=== PATIENT | male | born 1950 | race Caucasian/White ===

== ENCOUNTER 2021-09-10 10:21 | Day surgery (SDC) | payer MEDICARE ==
[~2021-09-10] VITALS: Ht 185.4 cm; Wt 80.4 kg
[2021-09-10 11:34] VITALS: BP 125/63; PULSE 70; TEMP 97.4
[2021-09-10] MEDS ORDERED: ASPIRIN 81M81 MG/TA2 PO (11:39)
[2021-09-10] MEDS ORDERED: ARICEPT10 MG PO (11:40)
[2021-09-10] MEDS ORDERED: NEURONTIN600 MG/TAB PO (11:40)
[2021-09-10] MEDS ORDERED: ANTI-DIARRHEAL2 MG PO (11:41)
[2021-09-10] MEDS ORDERED: ZESTRIL 20MG TA20 MG PO (11:41)
[2021-09-10] MEDS ORDERED: GLUCOPHAGE1000 MG PO (11:42)
[2021-09-10] MEDS ORDERED: ZOLOFT 100MG100 MG PO (11:42)
[2021-09-10] MEDS ORDERED: ZOCOR 40MG40 MG PO (11:43)
[2021-09-10 12:35] VITALS: BP 111/54; PULSE 59; TEMP 97.3
[2021-09-10 12:50] VITALS: BP 111/72; PULSE 64
[2021-09-10 13:05] VITALS: BP 127/61; PULSE 70
--- NOTE | 2021-09-10 13:56 | NUR ---
1235: Patient arrived back into [facility] room 6. Son at bedside. Dr. Hubbard in to see patient. Report received from ARMANDO Jordan. Patient alert and awake. Requesting diet pepsi and a blueberry muffin 1250: Patient tolerating food and drink well. No complaint of pain or nausea. 1305: Went through discharge instructions with patient and son. Questions answered. IV removed without complications. Patient to get dressed. Son left to pull up car. 1320: Patient dressed. Escorted to patient entrance via wheelchair. Patient got into personal vehicle unassisted and left in the care of his son, Benigno.
== END 2021-09-10 13:20 | disposition home or self-care (01) ==
LOC: SDCO 10:21
DX: D12.2 Benign neoplasm of ascending colon (principal); D12.4 Benign neoplasm of descending colon; D17.5 Benign lipomatous neoplasm of intra-abdominal organs; K57.30 Diverticulosis of large intestine without perforation or abscess without bleeding; R19.7 Diarrhea, unspecified; R15.1 Fecal smearing; R63.4 Abnormal weight loss; Z80.9 Family history of malignant neoplasm, unspecified; Z85.820 Personal history of malignant melanoma of skin; Z87.891 Personal history of nicotine dependence
CPT/HCPCS: J2704; J7030

== ENCOUNTER → 2021-09-14 | Outpatient (CLI) | payer MEDICARE ==
[~2021-09-14] MED LIST: ANTI-DIARRHEAL2 MG PO; ARICEPT10 MG PO; ASPIRIN 81M81 MG/TA2 PO; GLUCOPHAGE1000 MG PO; NEURONTIN600 MG/TAB PO; ZESTRIL 20MG TA20 MG PO; ZOCOR 40MG40 MG PO; ZOLOFT 100MG100 MG PO
== END ==
LOC: COL.CARD 09:47
DX: R27.0 Ataxia, unspecified (principal); R25.1 Tremor, unspecified; R29.898 Other symptoms and signs involving the musculoskeletal system; R41.3 Other amnesia; E53.8 Deficiency of other specified B group vitamins

== ENCOUNTER → 2021-10-19 | Outpatient (CLI) | payer MEDICARE | LOC: COL.RAD 11:08 | DX: K57.30 Diverticulosis of large intestine without perforation or abscess without bleeding (principal); D12.6 Benign neoplasm of colon, unspecified | CPT/HCPCS: Q9967 ==

== ENCOUNTER 2021-12-14 08:45 | Outpatient (RCR) | payer MEDICARE | END 2021-12-16 | disposition home or self-care (01) | LOC: MKS.ESL.PT | DX: G90.3 Multi-system degeneration of the autonomic nervous system (principal); R41.3 Other amnesia; E53.8 Deficiency of other specified B group vitamins ==

== ENCOUNTER 2021-12-31 10:30 | Outpatient (RCR) | payer MEDICARE | END 2022-01-16 | disposition home or self-care (01) | LOC: MKS.ESL.PT | DX: G90.3 Multi-system degeneration of the autonomic nervous system (principal); E53.8 Deficiency of other specified B group vitamins ==

== ENCOUNTER 2022-01-26 12:26 | Observation (INO) | payer MEDICARE ==
[~2022-01-26] VITALS: Ht 185.4 cm; Wt 91.8 kg
[2022-01-26 13:18] LABS: ALANINE AMINOTRANSFERASE 30 U/L (0-55); ALBUMIN 3.2 gm/dL (3.4-4.8); ALKALINE PHOSPHATASE 93 U/L (40-150); ANION GAP 12 mmol/L (7-16); AST,SGOT 21 U/L (5-34); BILIRUBIN,TOTAL 0.9 mg/dL (0.2-1.2); BLOOD UREA NITROGEN 21 mg/dL (8-26); CALCIUM 8.5 mg/dL (8.4-10.2); CARBON DIOXIDE 22 mmol/L (23-31); CHLORIDE 107 mmol/L (98-107); CREATININE, serum 0.77 mg/dL (0.72-1.25); GLUCOSE 93 mg/dL (70-99); POTASSIUM 3.7 mmol/L (3.5-4.5); SODIUM 141 mmol/L (136-145); TOTAL PROTEIN 6.3 gm/dL (6.2-8.1)
[2022-01-26 13:24] LABS: TROPONIN-I < 0.010 ng/mL (0.00-0.033)
[2022-01-26 13:26] LABS: BASO % 0.7 % (0.0-2.0); EOS # 0.3 K/mm3 (0.0-0.7); EOS % 4.5 % (0.0-4.0); GRAN # 3.8 K/mm3 (1.4-6.5); GRAN % 65.7 % (42.2-75.2); HEMOGLOBIN 11.1 g/dl (13.5-18.0); LYMPH % 17.6 % (20.0-51.0); MEAN CELL VOLUME 92 fl (80.0-100.0); MEAN CORPUSCULAR HEMOGLOBIN 32 pg (27-31); MEAN CORPUSCULAR HGB CONC 35 g/dl (33.0-37.0); MEAN PLATELET VOLUME 9.9 fl (7.4-10.4); MONO # 0.6 K/mm3 (0.1-0.6); MONO % 10.5 % (1.7-9.3); PLATELET COUNT 147 K/mm3 (130-400); RED BLOOD COUNT 3.49 M/mm3 (4.20-5.60); REDCELL DISTRIBUTION WIDTH-CV 13.4 % (11.5-14.5)
[2022-01-26 13:31] LABS: HEMATOCRIT 32.2 % (42.0-52.0)
[2022-01-26 15:36] LABS: COLLECTION METHOD CLEAN CATCH
[2022-01-26 15:40] LABS: URINE APPEARANCE Clear (CLEAR/HAZY); URINE COLOR Amber (YELLOW); URINE PROTEIN(semi-quant) TRACE (NEGATIVE)
[2022-01-26 15:41] LABS: URINE GLUCOSE TRACE (NEGATIVE)
[2022-01-26 15:42] LABS: URINE BLOOD Negative (NEGATIVE); URINE NITRATE Negative (NEGATIVE); URINE UROBILINOGEN 0.2 E.U/dL (0.2-1.0)
[2022-01-26 15:43] LABS: URINE KETONE TRACE (NEGATIVE)
[2022-01-26 15:44] LABS: MUCOUS Present (NOT PRESENT); SQUAMOUS EPITHELIAL 0-2 /hpf (0-10); URINE BACTERIA None Seen /hpf (NONE SEEN); URINE RBC 0-2 /hpf (0-2)
[2022-01-26 15:51] VITALS: BP 142/58; PULSE 74; TEMP 98.4
[2022-01-26] MEDS ORDERED: NAMENDA 10MG TA10 MG PO (16:12)
--- NOTE | 2022-01-26 18:20 | NUR ---
Pt up to the floor into room 346. Pt reports pain with movement, comfortable at rest. Urinating per urinal. IVF started to LFA. SCD's in place bilaterally. Pt cooperative with cares this far. Refusing dinner at this time. POC discussed with patient.
--- NOTE | 2022-01-26 18:50 | NUR ---
Medications updated through talking with pharmacies.
--- NOTE | 2022-01-26 19:43 | NUR ---
PT A&OX4 RESTING IN BED. ASSESSMENT COMPLETE. NS AT 75 IN LT WRIST. PT RATES PN A 3/10 IN THE LT HIP AND RIBS. VS STABLE AND TELE IN PLACE. FALL PRECAUTIONS IN PLACE. PT REFUSED DINNER. NO NEEDS AT THIS TIME. CALL LIGHT WITHIN REACH.
[2022-01-26 20:11] VITALS: BP 125/52; PULSE 75; TEMP 98.7
[2022-01-26 23:38] VITALS: BP 137/67; PULSE 74; TEMP 97.3
[2022-01-27 03:24] VITALS: BP 134/70; PULSE 69; TEMP 98
--- NOTE | 2022-01-27 05:28 | NUR ---
PT REPORTS HAVING GENERALIZED PAIN AND NORCO WAS GIVEN.
[2022-01-27 06:32] LABS: BASO # 0.1 K/mm3 (0.0-0.2); BASO % 0.9 % (0.0-2.0); EOS # 0.4 K/mm3 (0.0-0.7); GRAN # 3.3 K/mm3 (1.4-6.5); GRAN % 61.2 % (42.2-75.2); HEMOGLOBIN 11.2 g/dl (13.5-18.0); LYMPH % 19.4 % (20.0-51.0); MEAN CELL VOLUME 93 fl (80.0-100.0); MEAN CORPUSCULAR HEMOGLOBIN 31 pg (27-31); MEAN CORPUSCULAR HGB CONC 34 g/dl (33.0-37.0); MEAN PLATELET VOLUME 10.4 fl (7.4-10.4); MONO # 0.6 K/mm3 (0.1-0.6); MONO % 10.9 % (1.7-9.3); PLATELET COUNT 151 K/mm3 (130-400); RED BLOOD COUNT 3.57 M/mm3 (4.20-5.60); REDCELL DISTRIBUTION WIDTH-CV 13.3 % (11.5-14.5)
[2022-01-27 06:49] LABS: HEMATOCRIT 33.2 % (42.0-52.0)
[2022-01-27 06:51] LABS: ALBUMIN 2.8 gm/dL (3.4-4.8); CALCIUM 8.1 mg/dL (8.4-10.2); CREATININE, serum 0.72 mg/dL (0.72-1.25); MAGNESIUM 1.9 mg/dL (1.6-2.6); PHOSPHOROUS 2.8 mg/dL (2.3-4.7)
--- NOTE | 2022-01-27 07:28 | NUR ---
Shift report received from film processing shift supervisor RN
[2022-01-27 07:38] VITALS: BP 142/66; PULSE 65; TEMP 98.1
--- NOTE | 2022-01-27 09:17 | NUR ---
Pt resting supine in bed. SCDs on bilaterally. He denies the need for pain medication at this time. Diet changed to General by hospitalist. Pt. declining breakfast and states he is not feeling hungry. Ice water and apple juice given. Pt. denies additional needs at this time. Call light is in his reach
[2022-01-27 15:25] VITALS: BP 116/58; PULSE 65; TEMP 97.9
--- NOTE | 2022-01-27 15:28 | NUR ---
Pt resting supine in bed. PRN pain medication given for pain at 6\10 left hip/ribs. IS has been encouraged q1hr. Pt. denies shortness of breath or difficulty breathing. Call light is within pt's reach
--- NOTE | 2022-01-27 19:03 | NUR ---
RECEIVED CHANGE OF SHIFT REPORT FROM DAY SHIFT RN.
[2022-01-27 19:13] VITALS: BP 102/83; PULSE 75; TEMP 97.9
[2022-01-27 23:39] VITALS: BP 129/60; PULSE 69; TEMP 98.1
[2022-01-28 04:07] VITALS: BP 125/52; PULSE 64; TEMP 97.9
[2022-01-28 06:25] LABS: BASO % 0.5 % (0.0-2.0); EOS # 0.3 K/mm3 (0.0-0.7); EOS % 6.9 % (0.0-4.0); GRAN # 2.3 K/mm3 (1.4-6.5); GRAN % 59.4 % (42.2-75.2); HEMOGLOBIN 10.9 g/dl (13.5-18.0); LYMPH # 0.8 K/mm3 (1.2-3.4); LYMPH % 19.9 % (20.0-51.0); MEAN CELL VOLUME 95 fl (80.0-100.0); MEAN CORPUSCULAR HEMOGLOBIN 33 pg (27-31); MEAN CORPUSCULAR HGB CONC 35 g/dl (33.0-37.0); MEAN PLATELET VOLUME 9.5 fl (7.4-10.4); MONO # 0.5 K/mm3 (0.1-0.6); MONO % 12.8 % (1.7-9.3); PLATELET COUNT 150 K/mm3 (130-400); RED BLOOD COUNT 3.34 M/mm3 (4.20-5.60); REDCELL DISTRIBUTION WIDTH-CV 13.2 % (11.5-14.5)
[2022-01-28 06:35] LABS: HEMATOCRIT 31.6 % (42.0-52.0)
[2022-01-28 06:54] LABS: ALBUMIN 2.5 gm/dL (3.4-4.8); CALCIUM 8.3 mg/dL (8.4-10.2); CREATININE, serum 0.75 mg/dL (0.72-1.25); MAGNESIUM 1.9 mg/dL (1.6-2.6); PHOSPHOROUS 3.8 mg/dL (2.3-4.7); POTASSIUM 3.8 mmol/L (3.5-4.5)
--- NOTE | 2022-01-28 07:17 | NUR ---
CHANGE OF SHIFT REPORT GIVEN TO DAY SHIFT RNPANCHITO.
[2022-01-28 07:27] VITALS: BP 144/54; PULSE 59; TEMP 98.3
--- NOTE | 2022-01-28 07:55 | NUR ---
Received shift report from the night nurse.
--- NOTE | 2022-01-28 09:21 | NUR ---
Referral made to IPR director.
--- NOTE | 2022-01-28 10:18 | NUR ---
Patient laying in bed and alert and oriented. IVF infusing at 75ml/hr with no difficulty. SCD in place and patient reports of pain at left lower leg. Patient rated pain level 8/10 and describes pain as stabbing. Patient refused to have SCD pump on lower extremities. Will continue to monitor patient.
--- NOTE | 2022-01-28 10:18 | NUR ---
RN GAVE ISMAEL MAYO FOR PAIN, SEE MAR.
[2022-01-28 12:01] VITALS: BP 156/62; PULSE 56; TEMP 98.6
--- NOTE | 2022-01-28 15:23 | NUR ---
Reny: [employer] Situation: composition weatherboard installer went to the room on rounds Background: Pt was resting and content Assessment: no needs right now, pt appreciated the visit Recommendation: composition weatherboard installer will follow up as needed
[2022-01-28 16:26] VITALS: BP 152/54; PULSE 66; TEMP 99
--- NOTE | 2022-01-28 18:20 | NUR ---
Patient laying in bed watching TV. Patient did not eat any meal the entire day but drinking adequate amount of fluid and voiding . Patient reports of not feeling hungry. IVF infusing at the left hand. Patient denies pain.
[2022-01-28 19:41] VITALS: BP 155/56; PULSE 59; TEMP 97.5
--- NOTE | 2022-01-28 21:51 | NUR ---
PT A&OX4 RESTING IN BED. ASSESSMENT COMPLETE. PT RATES PN AN /. NS AT 75ML/HR IN LF. SCDS APPLIED TO BLE. VS STABLE AND TELE IN PLACE. NO NEEDS AT THIS TIME. CALL LIGHT WITHIN REACH.
[2022-01-29] VITALS (8 sets, daily range): BP systolic 115–154; BP diastolic 62–73; PULSE 64–94; TEMP 97.6–98.3
--- NOTE | 2022-01-29 00:40 | NUR ---
ORDER FOR ORTHOSTATIC BP, UNABLE TO OBTAIN DUE TO PT FEELING TOO WEAK TO MOVE
[2022-01-29 06:27] LABS: BASO % 0.4 % (0.0-2.0); EOS # 0.3 K/mm3 (0.0-0.7); EOS % 5.1 % (0.0-4.0); GRAN # 3.2 K/mm3 (1.4-6.5); GRAN % 62.4 % (42.2-75.2); HEMOGLOBIN 11.3 g/dl (13.5-18.0); LYMPH # 0.9 K/mm3 (1.2-3.4); LYMPH % 18.5 % (20.0-51.0); MEAN CELL VOLUME 91 fl (80.0-100.0); MEAN CORPUSCULAR HEMOGLOBIN 32 pg (27-31); MEAN CORPUSCULAR HGB CONC 35 g/dl (33.0-37.0); MONO # 0.7 K/mm3 (0.1-0.6); MONO % 12.8 % (1.7-9.3); PLATELET COUNT 183 K/mm3 (130-400); RED BLOOD COUNT 3.58 M/mm3 (4.20-5.60); REDCELL DISTRIBUTION WIDTH-CV 12.9 % (11.5-14.5)
[2022-01-29 06:29] LABS: ALBUMIN 2.7 gm/dL (3.4-4.8); CALCIUM 8.5 mg/dL (8.4-10.2); CREATININE, serum 0.7 mg/dL (0.72-1.25); MAGNESIUM 1.9 mg/dL (1.6-2.6); PHOSPHOROUS 3.6 mg/dL (2.3-4.7); POTASSIUM 4.2 mmol/L (3.5-4.5)
[2022-01-29 06:33] LABS: HEMATOCRIT 32.6 % (42.0-52.0)
--- NOTE | 2022-01-29 07:09 | NUR ---
Received shift report from the slot shift supervisor nurse.
--- NOTE | 2022-01-29 07:38 | NUR ---
Patient awake in bed watching TV. Patient alert and oriented. IVF NS infusing on the left hand at 75ml/hr. Assessment done on patient. Patient c/o pain at left hip, rib and lower extremity. Patient rated pain level 7/10 and describes pain as stabbing. SCD in place. Remind patient to order breakfast but patient states he is not feeling hungry. Will continue monitoring patient.
--- NOTE | 2022-01-29 07:45 | NUR ---
Nurse tech attempted to obtain orthostatic B/P. Patient c/o pain and unable to stand or sit to obtain blood pressure. B/P taken in a supine position.
--- NOTE | 2022-01-29 08:15 | NUR ---
Telemetry called a couple times regarding tele not picking up and occasionally showing V-tach. Both times pt was resting in bed with only complaints of pain. Heart rate/sound was regular. Checked tele pads which were all good.
--- NOTE | 2022-01-29 08:17 | NUR ---
Patient c/o pain at left rib and hip, and rated pain level 7/10. Bartlett administered for pain. Pain encourage to use incentive spirometer. Patient able to use up to 2500 x 10. Tolerated it well. Will continue to assess pain level.
--- NOTE | 2022-01-29 12:12 | NUR ---
Patient had EKG done. Tele monitor discontinued per doctor's orders.
--- NOTE | 2022-01-29 13:45 | NUR ---
Informed by IPR director that the patient's insurance denied the authorization for that unit.
--- NOTE | 2022-01-29 17:00 | NUR ---
Pt had a bowel movement, but had a bed minaya at bedside that he ended up sliding under himself. Pt refused to get up to have bowel movement and refused to get up to get cleaned up. Discussed with him the importance of some activity. He stated that he was getting tired of laying in bed and that he has been laying there too long. Offered to get him up to the chair and he refused stating he just couldn't do that right now. When I asked him why, he stated because of the pain. Looked and pt had not had pain medication since this am. Discussed him taking pain medication and then after it kicks in, we can assist him up to the chair. Pt was not fond of this idea but after some discussion, he did agree.
--- NOTE | 2022-01-29 18:10 | NUR ---
Went in to assist pt getting up to the chair. Once he got the motivation, he did well with one assist. Pt did not appear to be in terrible pain with this. Pt did have incontinent bowel movement in the bed. Cleaned up pt, changed bed linens and put on fresh gown. While pt was transferring to the chair he started to get nauseated. No emesis. Pt reported that it felt good to sit up. Offered to get him something to eat, but he reported that he was not hungry, even for soup or something small. Call light within reach, will continue to monitor
--- NOTE | 2022-01-29 18:17 | NUR ---
Patient had a large amount of formed bowel movement in a bed minaya. La care done with 2 nurses assistance. Linens changed and assisted patient to chair by the bedside. Patient felt a little bit nauseated, cold compress applied to forehead and offered cold water with ice. Patient is doing well sitting up in the chair.
--- NOTE | 2022-01-29 20:50 | NUR ---
PT A&OX4 BACK IN BED. MEDS GIVEN AND ASSESSMENT COMPLETE. SCABBING ON LT ELBOW RIPPED OFF AND BLEEDING IS PRESENT, LIGHT DRESSING APPLIED. PT REPORTS PN IN HIP A 07/26. FALL PRECAUTIONS IN PLACE. NO NEEDS AT THIS TIME. CALL LIGHT WITHIN REACH.
[2022-01-30 06:29] LABS: ALBUMIN 2.8 gm/dL (3.4-4.8); CALCIUM 8.6 mg/dL (8.4-10.2); CREATININE, serum 0.7 mg/dL (0.72-1.25); MAGNESIUM 2.1 mg/dL (1.6-2.6); PHOSPHOROUS 3.6 mg/dL (2.3-4.7); POTASSIUM 3.7 mmol/L (3.5-4.5)
[2022-01-30 06:46] LABS: BASO % 0.6 % (0.0-2.0); EOS # 0.2 K/mm3 (0.0-0.7); EOS % 3.4 % (0.0-4.0); GRAN # 3.1 K/mm3 (1.4-6.5); GRAN % 57.7 % (42.2-75.2); HEMOGLOBIN 11.3 g/dl (13.5-18.0); LYMPH # 1.3 K/mm3 (1.2-3.4); LYMPH % 24.1 % (20.0-51.0); MEAN CELL VOLUME 91 fl (80.0-100.0); MEAN CORPUSCULAR HEMOGLOBIN 32 pg (27-31); MEAN CORPUSCULAR HGB CONC 35 g/dl (33.0-37.0); MEAN PLATELET VOLUME 10.3 fl (7.4-10.4); MONO # 0.7 K/mm3 (0.1-0.6); MONO % 13.3 % (1.7-9.3); PLATELET COUNT 208 K/mm3 (130-400); RED BLOOD COUNT 3.55 M/mm3 (4.20-5.60); REDCELL DISTRIBUTION WIDTH-CV 12.9 % (11.5-14.5)
[2022-01-30 06:47] LABS: HEMATOCRIT 32.3 % (42.0-52.0)
--- NOTE | 2022-01-30 07:04 | NUR ---
Received shift report from the night nurseMini RN
[2022-01-30 07:23] VITALS: BP 133/66; PULSE 66; TEMP 97.4
--- NOTE | 2022-01-30 08:10 | NUR ---
Patient awake laying in bed in a supine position watching TV. Lungs CTA. VSS. INT left hand intact. SCD in place, pulses papable. Patient c/o pain at left hip and rib and describes pain as stabbing, shooting with movement and rated pain level 6/10. [place] administered. Encourge patient to use incentive spirometer and patient used it effectively. Will continue to monitor patient pain level.
--- NOTE | 2022-01-30 10:37 | NUR ---
Patient sitting up in chair by the bedside. Am care offered but patient refused at this time. Bed linen changed. Will try this afternoon to assist with hygiene. Call blanco within reach. Will continue to monitor patient.
[2022-01-30 11:27] VITALS: BP 101/57; PULSE 77; TEMP 98.6
[2022-01-30 16:17] VITALS: BP 103/88; PULSE 78; TEMP 97.7
--- NOTE | 2022-01-30 17:22 | NUR ---
fuller brush worker met with patient and daughter. Sandy stated they would accept patient to skilled care, however, patient would be responsible for 50%of their patient transport orderly, per patient's insurance. Patient and daughter, Gracia #[phone] state patient cannot afford, this so they desire home with home health. Worker proviced Medicare.gov share for home health and patient/daughter chose [facility] health. Worker gave [facility] a referral and faxed clinical information. Arjun with home health stated they can accept patient on Friday. Patient plans to discharge home on 01/31/22. Worker collaborated with therapy to advise that patient will be returining home due to insurance. Discharge plan: home with [facility].
--- NOTE | 2022-01-30 18:37 | NUR ---
Patient laying in bed comfortable. Patient denies pain at time. Family member at the bedside.
[2022-01-30 20:16] VITALS: BP 127/57; PULSE 71; TEMP 98.1
--- NOTE | 2022-01-30 20:58 | NUR ---
PT A&OX4 RESTING IN BED. MEDS GIVEN AND ASSESSMENT COMPLETE. PT IS FEELING STRONGER AND ABLE TO AMBULATE W STANDBY ASSIST. PT RATES PN IN HIP A 10/26. INT TO LF PATENT. FALL PRECAUTIONS IN PLACE. NO NEEDS AT THIS TIME. CALL LIGHT WITHIN REACH.
[2022-01-31 06:36] LABS: BASO % 0.8 % (0.0-2.0); EOS # 0.2 K/mm3 (0.0-0.7); EOS % 4.5 % (0.0-4.0); GRAN # 2.9 K/mm3 (1.4-6.5); GRAN % 54.8 % (42.2-75.2); LYMPH # 1.3 K/mm3 (1.2-3.4); MEAN CELL VOLUME 92 fl (80.0-100.0); MEAN CORPUSCULAR HEMOGLOBIN 32 pg (27-31); MEAN CORPUSCULAR HGB CONC 35 g/dl (33.0-37.0); MEAN PLATELET VOLUME 10.2 fl (7.4-10.4); MONO # 0.7 K/mm3 (0.1-0.6); MONO % 13.6 % (1.7-9.3); PLATELET COUNT 242 K/mm3 (130-400); RED BLOOD COUNT 3.46 M/mm3 (4.20-5.60); REDCELL DISTRIBUTION WIDTH-CV 13.3 % (11.5-14.5)
[2022-01-31 06:41] LABS: HEMATOCRIT 31.9 % (42.0-52.0)
[2022-01-31 06:54] LABS: ALBUMIN 2.8 gm/dL (3.4-4.8); CALCIUM 8.5 mg/dL (8.4-10.2); CREATININE, serum 0.79 mg/dL (0.72-1.25); MAGNESIUM 2.1 mg/dL (1.6-2.6); PHOSPHOROUS 3.7 mg/dL (2.3-4.7); POTASSIUM 3.9 mmol/L (3.5-4.5)
[2022-01-31 07:14] VITALS: BP 117/56; PULSE 57; TEMP 98.3
[2022-01-31] MEDS ORDERED: NORCO 325 MG-51 TAB PO (08:25)
--- NOTE | 2022-01-31 09:00 | NUR ---
Pt. sitting up in bed. Pt. is a&OX3, assessment complete. INT to lt. hand patent. Pt. reports pain at a 7 on pain scale with movement. Gave pain meds per orders. Pt. denies further needs, call light within reach.
--- NOTE | 2022-01-31 09:48 | NUR ---
Patient scheduled to discharge today. SW notified by hospitalist that the patiet will need a wheelchair to go home with. SW spoke with that patient and he would like to order it through [facility]. Patients signed DME order and clinical information faxed to DME agency. Phone call made to agency and informed them that the patient is discharging and will need it ordered. Patient's clinical information and discharge orders faxed to [facility]. Discharge plan: Home with [facility] and DME
--- NOTE | 2022-01-31 10:28 | NUR ---
Phone call made to the patient's daughter to notify that a wheelchair has been ordered and that i informed [facility] to contact her to schedule a time.
--- NOTE | 2022-01-31 16:42 | NUR ---
Pt. has met discharge criteria. INT discontinued. Reviewed discharge paperwork with the pt. Pt. voices understanding. Pt. assisted out by wheelchair.
== END 2022-01-31 16:44 | disposition home health service (06) ==
LOC: COL.ER 12:26 → SURG 14:49
PROVIDERS: Emergency Medicine; ADMIT Internal Medicine
DX: S32.10XA Unspecified fracture of sacrum, initial encounter for closed fracture (principal); S32.512A Fracture of superior rim of left pubis, initial encounter for closed fracture; S32.592A Other specified fracture of left pubis, initial encounter for closed fracture; S22.32XA Fracture of one rib, left side, initial encounter for closed fracture; I08.3 Combined rheumatic disorders of mitral, aortic and tricuspid valves; I42.0 Dilated cardiomyopathy; E11.42 Type 2 diabetes mellitus with diabetic polyneuropathy; E78.5 Hyperlipidemia, unspecified; F03.90 Unspecified dementia, unspecified severity, without behavioral disturbance, psychotic disturbance, mood disturbance, and anxiety; Z91.81 History of falling; W19.XXXA Unspecified fall, initial encounter; Y93.9 Activity, unspecified; Y92.009 Unspecified place in unspecified non-institutional (private) residence as the place of occurrence of the external cause; Z79.82 Long term (current) use of aspirin; Z87.891 Personal history of nicotine dependence; Z85.828 Personal history of other malignant neoplasm of skin; Z79.899 Other long term (current) drug therapy; Z79.84 Long term (current) use of oral hypoglycemic drugs
CPT/HCPCS: A9284; G0378; J1644; J7030; Q9967

== ENCOUNTER 2022-06-12 09:00 | Outpatient (RCR) | payer MEDICARE ==
[~2022-06-12 09:00] MED LIST changes: +NAMENDA 10MG TA10 MG PO; +NORCO 325 MG-51 TAB PO
== END 2022-06-18 | disposition home or self-care (01) ==
LOC: WSST
DX: R41.3 Other amnesia (principal); G90.3 Multi-system degeneration of the autonomic nervous system

== ENCOUNTER 2022-07-12 10:30 | Outpatient (RCR) | payer MEDICARE | END 2022-07-16 | disposition home or self-care (01) | LOC: WSST | DX: G90.3 Multi-system degeneration of the autonomic nervous system (principal); R41.3 Other amnesia; M79.2 Neuralgia and neuritis, unspecified; M62.81 Muscle weakness (generalized) ==

== ENCOUNTER 2022-08-09 10:30 | Outpatient (RCR) | payer MEDICARE | END 2022-08-16 | disposition home or self-care (01) | LOC: WSST | DX: R41.3 Other amnesia (principal) ==

== ENCOUNTER 2022-09-06 10:30 | Outpatient (RCR) | payer MEDICARE | END 2022-09-15 | disposition home or self-care (01) | LOC: WSST | DX: R48.9 Unspecified symbolic dysfunctions (principal); R41.3 Other amnesia; G90.3 Multi-system degeneration of the autonomic nervous system ==

== ENCOUNTER 2022-10-11 11:15 | Outpatient (RCR) | payer MEDICARE | END 2022-10-16 | disposition home or self-care (01) | LOC: WSST | DX: R48.9 Unspecified symbolic dysfunctions (principal); R41.3 Other amnesia ==